=== PATIENT | female | born 1950 | race American Indian/Alaskan Native ===

== ENCOUNTER 2018-07-14 09:09 | Day surgery (SDC) | payer BC ==
[2014-12-13 17:05] VITALS: BMI 35.9
--- NOTE | 2018-07-14 08:52 | CP.SDSHP ---
Same Day Surgery H & P - History Proposed Procedure: colonoscopy Pre-Op Diagnosis: family Hx colon carcinoma - Previous Medical/Surgical History Endocrine/Metabolic: Diabetes Previous Surgical History: Hysterectomy - Allergies Allergies: Allergies No Known Allergies Allergy (Verified 07/25/12 07:55) - Date & Time Date: 07/14/18 Time: 08:52 Short Stay Discharge - Short Stay Discharge Admitting Diagnosis/Reason for Visit: SCREENING Disposition: HOME/ ROUTINE
[2018-07-14] MEDS ORDERED: Lactated Ringer's 500 ML IV ONE (12:16)
[2018-07-14] MEDS ORDERED: Propofol 10 mg/ml Inj (20 ML) ONE (12:24)
[2018-07-14 12:55] VITALS: TEMP 97.1
[2018-07-14 13:39] VITALS: BP 171/92; PULSE 85; RESP 17; O2SAT 100
== END 2018-07-14 13:37 | disposition home or self-care (01) ==
LOC: C.ENDO 09:09
PROVIDERS: ATTEND Colon & Rectal Surgery
DX: Z12.11 Encounter for screening for malignant neoplasm of colon (principal); D12.4 Benign neoplasm of descending colon; K64.8 Other hemorrhoids
CPT/HCPCS: 45385; 82948; 88305; J2704; J7120